=== PATIENT | female | born 1990 | race Caucasian/White ===

== ENCOUNTER 2023-08-22 17:30 | Emergency (ER) | payer SELFPAY ==
[2023-08-22 17:44] VITALS: BP 103/71; PULSE 84; RESP 18; TEMP 98.3; BMI 30.4
[2023-08-22] MEDS: IBUPROFEN 600 MG TABLET (FP) PO ONE (18:35)
[2023-08-22] MEDS ORDERED: IBUPROFEN 600 MG TABLET (FP) PO ONE (18:36)
== END 2023-08-22 19:22 | disposition home or self-care (01) ==
LOC: JERFT 17:30
DX: S89.92XA Unspecified injury of left lower leg, initial encounter (principal); X50.1XXA Overexertion from prolonged static or awkward postures, initial encounter; Y93.19 Activity, other involving water and watercraft
CPT/HCPCS: 73562-TC-LT-FY; 99283-25